=== PATIENT | female | born 1980 | race Caucasian/White ===

== ENCOUNTER 2017-06-26 10:51 | Emergency (ER) | payer MEDICAID ==
[~2017-06-26] VITALS: Ht 152.4 cm; Wt 55.0 kg
[~2017-06-26 10:51] MED LIST: ALLE30TA3 PO; TRAM50 PO
[2017-06-26 10:53] VITALS: BP 118/78; PULSE 109; RESP 14; TEMP 98.9; O2SAT 96
== END 2017-06-26 15:35 | disposition left against medical advice (07) ==
LOC: NED 10:51
DX: K08.9 Disorder of teeth and supporting structures, unspecified (principal)
CPT/HCPCS: 99281